=== PATIENT | female | born 1985 | race Caucasian/White ===

== ENCOUNTER → 2017-11-10 | Outpatient (CLI) | payer OTHER ==
[~2017-11-10] MED LIST: ALLEGRA 60MG TA60 MG; FEMIRON20 MG; NORCO 325 MG-51 TAB PO; PRENATAL1 TA6 PO
== END ==
LOC: COL.RAD 13:00
DX: Z53.8 Procedure and treatment not carried out for other reasons (principal); R10.2 Pelvic and perineal pain

== ENCOUNTER → 2017-11-18 | Outpatient (CLI) | payer OTHER | LOC: COL.RAD 07:09 | DX: R10.2 Pelvic and perineal pain (principal); Z90.721 Acquired absence of ovaries, unilateral | CPT/HCPCS: Q9967 ==